=== PATIENT | female | born 1980 | race Caucasian/White ===

== ENCOUNTER 2023-05-28 06:16 | Day surgery (SDC) | payer OTHER, SELFPAY ==
[2023-05-28] VITALS (11 sets, daily range): BP systolic 112–143; BP diastolic 71–106; BMI 28.6
[2023-05-28] MEDS: NORMOSOL-R 1000 IV (08:50)
[2023-05-28] MEDS: DEMEROL 12.5 MG IV (11:26)
[2023-05-28] MEDS: SUBLIMAZE 50 MCG IV (11:34)
[2023-05-28] MEDS: SUBLIMAZE 25 MCG IV ×2 (11:44→11:53)
[2023-05-28] MEDS: Pyridium 200 MG PO (11:47)
== END 2023-05-28 13:00 | disposition home or self-care (01) ==
LOC: SDS 06:16
PROVIDERS: ATTENDING PHYSICIAN Specialist
DX: N20.2 Calculus of kidney with calculus of ureter (principal); Z87.442 Personal history of urinary calculi
CPT/HCPCS: 52356; 74018; 76000; C1894; C2617

== ENCOUNTER 2023-06-08 17:32 | Emergency (ER) | payer OTHER, SELFPAY ==
[2023-06-08 17:35] VITALS: BP 162/88
[2023-06-08] MEDS: ZOFRAN 4 MG IV ×2 (17:54→20:06)
[2023-06-08] MEDS: NSS 1000 IV (17:55)
[2023-06-08] MEDS: DILAUDID 1 MG IV (17:57)
[2023-06-08 17:58] LABS: % Basophils 0.9 % (0-2); % Immature Granulocytes 0.4 % (0-0.5); % Lymphocytes 31.1 % (20.5-51.1); % Monocytes 6.6 % (1.7-9.3); Absolute Basophils 0.1 10^3/uL (0-0.2); Absolute Eosinophils 0.5 10^3/uL (0-0.7); Absolute Immature Granulocytes 0.1 10^3/uL (0-0.05); Absolute Lymphocytes 4.1 10^3/uL (1.2-3.4); Absolute Monocytes 0.9 10^3/uL (0.1-0.6); Absolute Neutrophils 7.5 10^3/uL (1.4-6.5); Hematocrit 42.1 % (37.0-47.0); Hemoglobin 14.4 g/dL (12.0-16.0); Mean Corp Hgb Conc. 34.2 g/dL (33.0-37.0); Mean Corpuscular Hgb 30.5 pg (27.0-31.0); Mean Corpuscular Volume 89.2 fL (81.0-99.0); Mean Platelet Volume 8.6 fL (7.4-10.4); Nucleated Red Blood Cells % 0 %; Platelet Count 406 10^3/uL (130-400); Red Blood Cell Count 4.72 10^6/uL (4.20-5.40); Red Cell Dist. Width 11.9 % (11.5-14.5); White Blood Cell Count 13.1 10^3/uL (4.8-10.8)
[2023-06-08 18:10] LABS: Urine Albumin Trace (Neg - Trace); Urine Bilirubin Negative (Negative); Urine Character Clear (Clear); Urine Color Yellow; Urine Glucose Negative (Negative); Urine Ketone Trace (Negative); Urine Leukocyte Negative (Negative); Urine Nitrite Negative (Negative); Urine Occult Blood 4+ (Negative); Urine Urobilinogen Negative (Neg - 1+)
[2023-06-08 18:10] LABS: ALT (SGPT) 16 U/L (0-35); AST (SGOT) 22 U/L (14-36); Albumin 4.2 g/dl (3.5-5.0); Alkaline Phosphatase 85 U/L (38-126); Blood Urea Nitrogen 13 mg/dl (7-17); Calcium 8.9 mg/dl (8.4-10.2); Carbon Dioxide 24 mmol/L (22-30); Chloride 105 mmol/L (98-107); Glucose 115 mg/dl (70-99); Potassium 3.7 mmol/L (3.5-5.1); Sodium 135 mmol/L (135-145); Total Bilirubin 0.3 mg/dl (0.2-1.3); Total Protein 7.1 g/dl (6.3-8.2); eGFR > 60.00
[2023-06-08 18:13] LABS: HCG, Serum Qualitative Screen Negative
[2023-06-08 18:18] LABS: Urine Red Blood Cell >100 /HPF (0-2); Urine Squamous Cell >30 /LPF (Few); Urine White Cell 0-2 /HPF (0-5)
--- NOTE | 2023-06-08 19:33 | ED.GENMED ---
History of Present Illness
General
Chief Complaint: Flank Pain
Source: patient
Exam Limitations: none
Time Seen by Provider: 06/08/23 17:42
Travel History
Have you had any contact with someone who has COVID-19?: No
Do you have any symptoms of coronavirus? Fever > 100 degrees, chills, cough, shortness of breath, sore throat, loss of taste or smell, muscle aches, or headache?: No
History of Present Illness
History of Present Illness:
42-year-old female presents with severe right flank pain. Patient started with pain this afternoon. She recently was treated for kidney stone by urology. She states this pain is the same as her typical kidney stone pain. The pain is severe. She
admits to nausea and vomiting as well. No fevers
Past History
Past History
ED Past Medical History: Hypothyroidism, Psychiatric (anxiety) and Other (Ovarian cyst, Kidney stones, endometriosis, UTI,)
ED Past Surgical History: Gynecological (Total Hysterectomy, right oophorectomy), Tonsilectomy, Urological (Left lithotripsy 12/09/2013, stent placement) and Other (sinus surgery)
Social History
Tobacco: Smoker
Alcohol: Occasional
Drug: Marijuana
Personal:
Living: with family
Employment: Employed
Family History
Family History: Hypertension (Mother) and CAD (Grandfather)
Phy Exam
Physical Exam
Physical Exam:
CONSTITUTIONAL Vital signs reviewed, Patient alert and oriented to person, place and time. Moderate pain distress
HEAD atraumatic, normocephalic.
EYES eyelids normal to inspection, Extraocular muscles intact, Conjunctiva normal, Sclera normal.
NECK normal range of motion, Trachea midline, no jugular venous distention.
RESP no respiratory distress
BACK No obvious deformities, right CVA tenderness
UPPER EXTREMITY Gross Range of motion normal, gross motor strength normal
LOWER EXTREMITY Gross range of motion normal, Gross motor strength normal
NEURO Speech normal, No focal motor deficits include, [place] coma scale 15, Memory normal, Cranial Nerves intact to screening exam.
SKIN Skin warm, dry, and normal in color.
PSYCHIATRIC Patient oriented to person place and time, Normal affect.
Course
Orders/Labs/Results
Orders:
Orders
06/08/23 17:45
Urinalysis Reflex To Culture Urgent
Date Specimen was Collected: 06/08/23
Time Specimen was Collected: 17:42
Urine Microscopic Reflex Cult Urgent
06/08/23 17:47
CT Abd/pel Without Iv Or Oral Stat
Comment:
Reason For Exam: R flank pain
HCG, Urine Qualitative Screen Urgent
0.9% Sodium Chloride 1000 ml [Nss] 1,000 ml IV BOLUS
Ondansetron Injectable [Zofran] 4 mg IV NOW STA
Test Result ONCE
06/08/23 17:50
Complete Blood Count/With Diff Urgent
Comprehensive Metabolic Panel Urgent
HCG, Serum Qualitative Screen Urgent
06/08/23 17:53
HYDROmorphone [Dilaudid] 1 mg .ROUTE .STK-MED ONE
06/08/23 17:57
HYDROmorphone [Dilaudid] 1 mg IV NOW STA
06/08/23 18:00
Add On- LAB Urgent
Tests Added?: hcg urine qualitative
06/08/23 19:43
Ketorolac [Toradol] 30 mg .ROUTE .STK-MED ONE
Ondansetron Injectable [Zofran] 4 mg .ROUTE .STK-MED ONE
06/08/23 19:44
Ketorolac [Toradol] 30 mg IV NOW STA
06/08/23 20:06
Ondansetron Injectable [Zofran] 4 mg IV NOW STA
Abnormal Lab Results
06/08/23 06/08/23
17:45 17:50
WBC 13.1 H 10^3/uL
(4.8-10.8)
Plt Count 406 H 10^3/uL
(130-400)
Abs Immat Gran (auto) 0.1 H 10^3/uL
(0-0.05)
Absolute Neuts (auto) 7.5 H 10^3/uL
(1.4-6.5)
Absolute Lymphs (auto) 4.1 H 10^3/uL
(1.2-3.4)
Absolute Monos (auto) 0.9 H 10^3/uL
(0.1-0.6)
Glucose 115 H mg/dl
(70-99)
Urine Ketones Trace A
(Negative)
Ur Occult Blood Reflex 4+ A
(Negative)
Urine RBC >100 A /HPF
(0-2)
06/08/23 17:50
06/08/23 17:50
Vital Signs
Initial and Last Documented VS:
Initial Vital Signs
Temp Pulse Resp BP Pulse Ox
97.5 F 57 18 162/88 99
06/08/23 17:35 06/08/23 17:35 06/08/23 17:35 06/08/23 17:35 06/08/23 17:35
Last Documented Vital Signs
Temp Pulse Resp BP Pulse Ox
97.5 F 57 18 162/88 99
06/08/23 17:35 06/08/23 17:35 06/08/23 17:35 06/08/23 17:35 06/08/23 17:35
MDM/Problems Addressed
MDM/Problems Addressed:
Nephrolithiasis, flank pain, renal colic
*Radiology
Radiology exam reviewed: preliminary read by ED provider (Right-sided stone noted with hydro)
*Pulse Oximetry
Patient hypoxic: no
*Critical Care Note
Total Time (30-74mins, 75-104mins- exclusive of procedures): Not Applicable
Data Reviewed
Review of Other/Old Records Reveals: Operative Reports (Operative report reviewed from May 2023, left UVJ stone)
Source: patient
Further Testing Considered But Not Given:
Considered ultrasound will proceed with CT
Patient Management
Discussion with other providers: Housekeeper And Laundry Assistant (case d/w / parker. Recommends outpatient management and will follow closely. He request that the patient call him in the morning)
Escalation/DeEscalation of care consider admission/obs:
Patient feeling much better. Afebrile. Outpatient follow-up with Dr. Yoo. Patient has pain medications at home
ED Attending Note
-
Portions of this chart may have been created with voice recognition software.� Occasional wrong word or��sound alike� substitutions may have occurred due to the inherent limitations of voice recognition software.
Discharge Plan
Departure
Patient Disposition: Home (Routine Discharge)
Date of Disposition: 06/08/23
Time of Disposition: 20:27
Patient with high blood pressure during this ER visit?: Yes
Discharge Problem:
Ureterolithiasis
Instructions: Kidney Stones (DC), BLOOD PRESSURE
Prescriptions:
New
tamsulosin [Flomax] 0.4 mg capsule
0.4 mg PO HS Qty: 30 0RF
No Action
clonazepam 1 MG tablet
1 mg PO HS
levothyroxine 100 MCG tablet
100 mcg PO DAILY
lisinopril 10 mg Tablet
10 mg PO HS
paroxetine HCl [Paxil] 40 mg Tablet
40 mg PO HS
tamsulosin 0.4 mg capsule
0.4 mg PO HS
Medical Marijuana
1 dose inhalation PRN PRN (Reason: Insomnia/ Anxiety)
Referrals:
Bay Smith MD [Family Provider] -
Activity Restrictions/Additional Instructions:
Please call Dr. Yoo tomorrow to plan follow-up. Return for intractable pain, fevers, vomiting or any other concerns
Interventions
Interventions:
*Risk Screen - Suicide Last Done: 06/08/23 17:37
*General Assessment Last Done: 06/08/23 17:37
*Neglect/Abuse Screening Last Done: 06/08/23 17:37
DC-Unzgej-Jwysivkvku Assessment Last Done: 06/08/23 18:01
ED-Female Genitourinary Assessment Last Done: 06/08/23 18:01
[2023-06-08] MEDS: TORADOL 30 MG IV (19:57)
[2023-06-08 20:32] VITALS: BP 125/86
== END 2023-06-08 20:36 | disposition home or self-care (01) ==
LOC: EMR 17:32
PROVIDERS: EMERGENCY PHYSICIAN Emergency Medicine; FAMILY PHYSICIAN Family Medicine
DX: N13.2 Hydronephrosis with renal and ureteral calculous obstruction (principal); F17.200 Nicotine dependence, unspecified, uncomplicated
CPT/HCPCS: 99284; 96374; 96375 ×2; 96361; 96376; 74176; 80053; 81003; 81015; 84703; 85025

== ENCOUNTER 2023-06-11 06:18 | Day surgery (SDC) | payer OTHER, SELFPAY ==
[2023-06-11] VITALS (7 sets, daily range): BP systolic 126–162; BP diastolic 79–98
[2023-06-11] MEDS: NORMOSOL-R 1000 IV (09:16)
[2023-06-11] MEDS: DILAUDID 0.5 MG IV ×2 (11:13→11:28)
[2023-06-11] MEDS: Pyridium 200 MG PO (11:43)
[2023-06-14 09:59] LABS: Stone Analysis Mass 11 mg
== END 2023-06-11 12:32 | disposition home or self-care (01) ==
LOC: SDS 06:18
PROVIDERS: ATTENDING PHYSICIAN Specialist
DX: N13.2 Hydronephrosis with renal and ureteral calculous obstruction (principal); Q61.5 Medullary cystic kidney
CPT/HCPCS: 52356; 74018; 76000; 82365; A4300; C1894; C2617

== ENCOUNTER 2023-06-13 22:09 | Emergency (ER) | payer OTHER, SELFPAY ==
[2023-06-13 22:12] VITALS: BP 172/114
[2023-06-13 22:33] VITALS: BMI 29.8
[2023-06-13] MEDS: NSS 1000 IV (22:34)
[2023-06-13 22:40] LABS: % Basophils 0.6 % (0-2); % Eosinophils 3.5 % (0-6); % Immature Granulocytes 0.4 % (0-0.5); % Lymphocytes 35.7 % (20.5-51.1); % Monocytes 8.5 % (1.7-9.3); % Neutrophils 51.3 % (42.2-75.2); Absolute Basophils 0.1 10^3/uL (0-0.2); Absolute Eosinophils 0.5 10^3/uL (0-0.7); Absolute Immature Granulocytes 0.1 10^3/uL (0-0.05); Absolute Lymphocytes 4.7 10^3/uL (1.2-3.4); Absolute Monocytes 1.1 10^3/uL (0.1-0.6); Absolute Neutrophils 6.7 10^3/uL (1.4-6.5); Hematocrit 39.2 % (37.0-47.0); Hemoglobin 13.9 g/dL (12.0-16.0); Mean Corp Hgb Conc. 35.5 g/dL (33.0-37.0); Mean Corpuscular Hgb 30.7 pg (27.0-31.0); Mean Corpuscular Volume 86.5 fL (81.0-99.0); Mean Platelet Volume 8.8 fL (7.4-10.4); Nucleated Red Blood Cells % 0 %; Platelet Count 330 10^3/uL (130-400); Red Blood Cell Count 4.53 10^6/uL (4.20-5.40); Red Cell Dist. Width 12.1 % (11.5-14.5)
--- NOTE | 2023-06-13 22:40 | ED.GENMED ---
History of Present Illness
General
Chief Complaint: Abdominal Pain
Source: patient
Exam Limitations: none
Time Seen by Provider: 06/13/23 22:37
Travel History
Have you had any contact with someone who has COVID-19?: No
Do you have any symptoms of coronavirus? Fever > 100 degrees, chills, cough, shortness of breath, sore throat, loss of taste or smell, muscle aches, or headache?: No
History of Present Illness
History of Present Illness:
See MDM
Past History
Past History
ED Past Medical History: Hypothyroidism, Psychiatric (anxiety) and Other (Ovarian cyst, Kidney stones, endometriosis, UTI,)
ED Past Surgical History: Gynecological (Total Hysterectomy, right oophorectomy), Tonsilectomy, Urological (Left lithotripsy 12/09/2013, stent placement) and Other (sinus surgery)
Social History
Tobacco: Smoker
Alcohol: Occasional
Drug: Marijuana
Personal:
Living: with family
Employment: Employed
Family History
Family History: Hypertension (Mother) and CAD (Grandfather)
Phy Exam
Physical Exam
Physical Exam:
See MDM
Course
Orders/Labs/Results
Orders:
Orders
06/13/23 22:32
IV Insert/Care/Rem.- Treatment PRN
06/13/23 22:34
0.9% Sodium Chloride 1000 ml [Nss] 1,000 ml IV BOLUS
06/13/23 22:35
Complete Blood Count/With Diff Urgent
Comprehensive Metabolic Panel Urgent
06/13/23 22:39
HYDROmorphone [Dilaudid] 1 mg IV NOW STA
Ondansetron Injectable [Zofran] 4 mg IV NOW STA
06/13/23 22:40
CT Abd/pel Without Iv Or Oral Urgent
Comment:
Reason For Exam: R flank pain, Recent R ureteral stent
06/13/23 22:52
Ketorolac [Toradol] 30 mg .ROUTE .STK-MED ONE
06/13/23 22:55
Ketorolac [Toradol] 30 mg IV NOW STA
Abnormal Lab Results
06/13/23
22:35
WBC 13.0 H 10^3/uL
(4.8-10.8)
Abs Immat Gran (auto) 0.1 H 10^3/uL
(0-0.05)
Absolute Neuts (auto) 6.7 H 10^3/uL
(1.4-6.5)
Absolute Lymphs (auto) 4.7 H 10^3/uL
(1.2-3.4)
Absolute Monos (auto) 1.1 H 10^3/uL
(0.1-0.6)
Sodium 134 L mmol/L
(135-145)
AST 39 H U/L
(14-36)
06/13/23 22:35
06/13/23 22:35
Vital Signs
Initial and Last Documented VS:
Initial Vital Signs
Temp Pulse Resp BP Pulse Ox
97.9 F 84 24 172/114 100
06/13/23 22:12 06/13/23 22:12 06/13/23 22:12 06/13/23 22:12 06/13/23 22:12
Last Documented Vital Signs
Temp Pulse Resp BP Pulse Ox
98.1 F 77 16 124/81 99
06/14/23 00:02 06/14/23 00:02 06/14/23 00:02 06/14/23 00:02 06/14/23 00:02
MDM/Problems Addressed
Differential Diagnosis Includes:
HPI and MDM Narrative:
42-year-old female presenting with sudden onset of right flank pain. This is associated with nausea. Patient had recent ureteral stent placed few days ago with laser lithotripsy of 2 proximal stones patient states the pain came on suddenly and
feels similar to episode when she was diagnosed with kidney stones
Physical exam
General: Uncomfortable, unable to find comfortable position
HEENT: protecting airway
Neck: appears supple
CV: No evidence of cyanosis
Resp: No accessory muscle use
Abd: Non-distended. Mild right flank tenderness. No rebound
Extremities: No deformities
Neuro: alert
Psych: Normal affect
Skin: Intact
Problems Addressed including Acute and Chronic Conditions affecting care:
1. Right flank pain
Acuity: acute
Prognosis: stable
Details: Given recent ureteral stent, will repeat CT looking for any stent movement
Updates
CT consistent with movement of the ureteral stent 4 cm proximal. Based on the urologist note, he expected minimal inflammation from the procedure. Case was discussed with urology on-call who agrees that it is safe to remove the stent. Nurse
qa lead Bethany at bedside. I did grab the tether and I easily remove the ureteral stent without complication. The stent was removed in its entirety. Patient tolerated procedure well
Differential Diagnosis (but not limited to): Kidney stone, ureteral stent complication
Testing considered: Urinalysis
Drug therapy (if applicable): OTC meds, please see d/c instruction regarding Rx drugs
Amount and/or Complexity of Data Reviewed
Clinical info obtained from: Patient
External data reviewed: Recent ureteral stent placed
Labs I independently reviewed (but not limited to): Mild leukocytosis
Radiology: The CT scan was personally and independently reviewed. In addition, official CT report reviewed.
Pulse Ox: not hypoxic
EKG independently reviewed: N/A
Order Expediter: N/A
Critical Care: N/A
Risk of Complication:
Social Determinants of health: Good social support
Discussed with other providers: Urologist
Escalation of Care includes Admit/Obs: After being observed in the Emergency Department, pt stable for discharge.
Occasional wrong word or 'sound a like' substitutions may have occurred due to the inherent limitations of voice recognition software. Read the chart carefully and recognize, using context, where substitutions have occurred.
*Critical Care Note
Total Time (30-74mins, 75-104mins- exclusive of procedures): Not Applicable
ED Attending Note
-
Portions of this chart may have been created with voice recognition software.� Occasional wrong word or��sound alike� substitutions may have occurred due to the inherent limitations of voice recognition software.
Discharge Plan
Departure
Patient Disposition: Home (Routine Discharge)
Date of Disposition: 06/14/23
Time of Disposition: 00:46
Patient with high blood pressure during this ER visit?: No
Discharge Problem:
Malposition of ureteral stent
Prescriptions:
No Action
clonazepam 1 MG tablet
1 mg PO HS
levothyroxine 100 MCG tablet
100 mcg PO DAILY
lisinopril 10 mg Tablet
10 mg PO HS
paroxetine HCl [Paxil] 40 mg Tablet
40 mg PO HS
Medical Marijuana
1 dose inhalation PRN PRN (Reason: Insomnia/ Anxiety)
Rx Instructions:
Flower
hydrocodone-acetaminophen [Vicodin ES] 7.5-300 mg Tablet
1 tab PO Q6H PRN (Reason: pain)
Referrals:
Bay Smith MD [Family Provider] -
Activity Restrictions/Additional Instructions:
Please return for any worsening symptoms.
You may return at any time if you have further concerns.
Please follow up with your doctor at the first available appointment, preferably this week.
Thank you for choosing [facility].
Interventions
Interventions:
*Risk Screen - Suicide Last Done: 06/13/23 22:12
*Neglect/Abuse Screening Last Done: 06/13/23 22:12
WM-Tnnzga-Vcpvzzuubq Assessment Last Done: 06/13/23 22:40
[2023-06-13] MEDS: ZOFRAN 4 MG IV (22:44)
[2023-06-13] MEDS: DILAUDID 1 MG IV (22:44)
[2023-06-13 22:54] LABS: ALT (SGPT) 14 U/L (0-35); AST (SGOT) 39 U/L (14-36); Albumin 3.8 g/dl (3.5-5.0); Alkaline Phosphatase 76 U/L (38-126); Blood Urea Nitrogen 10 mg/dl (7-17); Calcium 8.6 mg/dl (8.4-10.2); Carbon Dioxide 24 mmol/L (22-30); Chloride 104 mmol/L (98-107); Estimated Creatinine Clearance > 125 ml/min; Glucose 93 mg/dl (70-99); Potassium 3.7 mmol/L (3.5-5.1); Sodium 134 mmol/L (135-145); Total Bilirubin 0.4 mg/dl (0.2-1.3); Total Protein 6.5 g/dl (6.3-8.2); eGFR > 60.00
[2023-06-13] MEDS: TORADOL 30 MG IV (22:55)
[2023-06-14 00:02] VITALS: BP 124/81
== END 2023-06-14 00:52 | disposition home or self-care (01) ==
LOC: EMR 22:09
PROVIDERS: EMERGENCY PHYSICIAN Student in an Organized Health Care Education/Training Program; FAMILY PHYSICIAN Family Medicine
DX: T83.122A Displacement of indwelling ureteral stent, initial encounter (principal); X58.XXXA Exposure to other specified factors, initial encounter; R10.9 Unspecified abdominal pain; E03.9 Hypothyroidism, unspecified; F41.9 Anxiety disorder, unspecified; F17.200 Nicotine dependence, unspecified, uncomplicated; Z82.49 Family history of ischemic heart disease and other diseases of the circulatory system; Z87.440 Personal history of urinary (tract) infections; Z87.442 Personal history of urinary calculi; Z90.710 Acquired absence of both cervix and uterus; Z90.721 Acquired absence of ovaries, unilateral
CPT/HCPCS: 99284; 96374; 96375; 96361; 74176; 80053; 85025

== ENCOUNTER → 2023-06-16 11:04 | Outpatient (REF) | payer OTHER, SELFPAY | LOC: CLAB 11:04 | PROVIDERS: ATTENDING PHYSICIAN Specialist | DX: N39.0 Urinary tract infection, site not specified (principal) | CPT/HCPCS: 87086 ==

== ENCOUNTER 2024-03-28 12:39 | Emergency (ER) | payer OTHER, BC, SELFPAY ==
[2024-03-28 12:43] VITALS: BP 126/97
--- NOTE | 2024-03-28 12:44 | ED.GENMED ---
ED Provider Triage
<Ajit Rivera Jr., PA-C - Last Filed: 03/28/24 12:49>
-
Patient seen by provider in Triage?: Seen in Triage
Attestation: A medical screening examination has been initiated by a qualified medical provider. Based on the assessment performed at this time, it has been determined that an emergent medical condition may exist and the patient has been informed
that further medical evaluation and possible additional diagnostic testing may be needed.
HPI: 43-year-old female past medical history of kidney stones presenting to the emergency department today with concerns of intermittent discomfort to the left flank over the past 2 days but worsening today. Associated nausea plan for labs
urinalysis and CT scan for further assessment.
GENERAL: Alert , in no apparent distress
EYE: No visual abnormalities.
NECK: Trachea midline
ENT: No visible abnormalities.
LUNGS: No acute respiratory distress
NEUROLOGICAL: Alert and oriented
SKIN: Skin intact. No visible changes.
MUSCULOSKELETAL: Moving extremities normally
PSYCH: Normal and appropriate interaction.
This is a medical evaluation conducted in person to initiate diagnostic evaluation and provide initial therapeutics. Please see further documentation by the treating clinician.
History of Present Illness
<Ajit Rivera Jr., PA-C - Last Filed: 03/28/24 12:49>
General
Chief Complaint: Flank Pain
Time Seen by Provider: 03/28/24 13:43
<Cata Mobley PA-C - Last Filed: 03/28/24 17:47>
General
Source: patient
Exam Limitations: none
Nursing documentation reviewed up to this point in time: agreed with
History of Present Illness
History of Present Illness:
Patient is a 43-year-old female with history hypertension, kidney stones presents emergency department with left flank pain. Patient reports 3 days of watery diarrhea. She then noticed left flank pain radiating into her left lower abdomen
yesterday which became worse today. She does note some radiation of pain up into her chest especially during bowel movements. She has had nausea although no vomiting. No fevers or chills. No shortness of breath. No tearing back pain. No
dizziness or lightheadedness. No one else at home with GI symptoms.
Past History
<Ajit Rivera Jr., PA-C - Last Filed: 03/28/24 12:49>
Past History
ED Past Medical History: Hypothyroidism, Psychiatric (anxiety) and Other (Ovarian cyst, Kidney stones, endometriosis, UTI,)
ED Past Surgical History: Gynecological (Total Hysterectomy, right oophorectomy), Tonsilectomy, Urological (Left lithotripsy 12/09/2013, stent placement) and Other (sinus surgery)
Social History
Tobacco: Smoker
Alcohol: Occasional
Drug: Marijuana
Personal:
Living: with family
Employment: Employed
Family History
Family History: Hypertension (Mother) and CAD (Grandfather)
Review of Systems
<Cata Mobley PA-C - Last Filed: 03/28/24 17:47>
Review of Systems
Allergies reviewed?: Yes
All Other Systems: ROS reviewed and negative except as documented in HPI and ROS
Phy Exam
<CLIFFORD Maria Last Filed: 03/28/24 17:47>
Physical Exam
Physical Exam:
Vitals: Hypertensive, otherwise vital signs stable. Afebrile
General: Patient is uncomfortable due to pain, nontoxic appearing
Skin: Warm and dry, no rashes or lesions
Head: Normocephalic, atraumatic
Eyes: Sclera nonicteric. EOMs intact. No nystagmus.
Throat: Protecting airway
Neck: Normal ROM, no cervical spine tenderness, no meningismus
Cardiac: Regular rate and rhythm, no murmurs.
Pulm: Normal respiratory effort, no wheezes, rales, rhonchi heard on exam.
Abdomen: Abdomen soft. Moderate abdominal tenderness in left lower and right lower quadrants. No rebound tenderness or guarding. No CVA
Extremities: No evidence of cyanosis or edema. Negative Homans' sign bilaterally. Palpable distal pulses.
Neuro: AAOx3. Grossly intact.
Psychiatric: Normal affect.
Course
<Ajit Rivera Jr., PA-C - Last Filed: 03/28/24 12:49>
Orders/Labs/Results
Orders:
Orders
03/28/24 12:46
0.9% Sodium Chloride 1000 ml [Nss] 1,000 ml IV BOLUS
Ketorolac [Toradol] 15 mg IV NOW STA
03/28/24 12:49
Ondansetron Injectable [Zofran] 4 mg IV NOW STA
03/28/24 12:52
Complete Blood Count/With Diff Urgent
Comprehensive Metabolic Panel Urgent
Lipase Urgent
Comment: ADDON
Urinalysis Reflex To Culture Urgent
Date Specimen was Collected: 03/28/24
Time Specimen was Collected: 12:49
Urine Microscopic Reflex Cult Urgent
03/28/24 14:17
Electrocardiogram (*1) Urgent
Reason for Study: Chest Pain
EKG- Treatment ONCE
03/28/24 14:18
Add On- LAB Urgent
Tests Added?: lipase
CT Abd/pelvis W Iv Cont Urgent
Comment:
Reason For Exam: Left abdominal pain, +N, + diarrhea
03/28/24 14:24
Troponin I Urgent
Abnormal Lab Results
03/28/24
12:52
Absolute Monos (auto) 0.7 H 10^3/uL
(0.1-0.6)
Leukocyte Esterase Rfl Trace A
(Negative)
03/28/24 12:52
03/28/24 12:52
Vital Signs
Initial and Last Documented VS:
Initial Vital Signs
Temp Pulse Resp BP Pulse Ox
97.6 F 93 18 126/97 98
03/28/24 12:43 03/28/24 12:43 03/28/24 12:43 03/28/24 12:43 03/28/24 12:43
Last Documented Vital Signs
Temp Pulse Resp BP Pulse Ox
97.6 F 64 17 151/97 98
03/28/24 12:43 03/28/24 16:44 03/28/24 16:44 03/28/24 16:44 03/28/24 12:43
<Cata Mobley PA-C - Last Filed: 03/28/24 17:47>
Orders/Labs/Results
Orders:
Orders
03/28/24 12:46
0.9% Sodium Chloride 1000 ml [Nss] 1,000 ml IV BOLUS
Ketorolac [Toradol] 15 mg IV NOW STA
03/28/24 12:49
Ondansetron Injectable [Zofran] 4 mg IV NOW STA
03/28/24 12:52
Complete Blood Count/With Diff Urgent
Comprehensive Metabolic Panel Urgent
Lipase Urgent
Comment: ADDON
Urinalysis Reflex To Culture Urgent
Date Specimen was Collected: 03/28/24
Time Specimen was Collected: 12:49
Urine Microscopic Reflex Cult Urgent
03/28/24 14:17
Electrocardiogram (*1) Urgent
Reason for Study: Chest Pain
EKG- Treatment ONCE
03/28/24 14:18
Add On- LAB Urgent
Tests Added?: lipase
CT Abd/pelvis W Iv Cont Urgent
Comment:
Reason For Exam: Left abdominal pain, +N, + diarrhea
03/28/24 14:24
Troponin I Urgent
Abnormal Lab Results
03/28/24
12:52
Absolute Monos (auto) 0.7 H 10^3/uL
(0.1-0.6)
Leukocyte Esterase Rfl Trace A
(Negative)
03/28/24 12:52
03/28/24 12:52
Vital Signs
Initial and Last Documented VS:
Initial Vital Signs
Temp Pulse Resp BP Pulse Ox
97.6 F 93 18 126/97 98
03/28/24 12:43 03/28/24 12:43 03/28/24 12:43 03/28/24 12:43 03/28/24 12:43
Last Documented Vital Signs
Temp Pulse Resp BP Pulse Ox
97.6 F 64 17 151/97 98
03/28/24 12:43 03/28/24 16:44 03/28/24 16:44 03/28/24 16:44 03/28/24 12:43
<Bay Justin MD - Last Filed: 03/28/24 14:26>
Orders/Labs/Results
Orders:
Orders
03/28/24 12:46
0.9% Sodium Chloride 1000 ml [Nss] 1,000 ml IV BOLUS
Ketorolac [Toradol] 15 mg IV NOW STA
03/28/24 12:49
Ondansetron Injectable [Zofran] 4 mg IV NOW STA
03/28/24 12:52
Complete Blood Count/With Diff Urgent
Comprehensive Metabolic Panel Urgent
Lipase Urgent
Comment: ADDON
Urinalysis Reflex To Culture Urgent
Date Specimen was Collected: 03/28/24
Time Specimen was Collected: 12:49
Urine Microscopic Reflex Cult Urgent
03/28/24 14:17
Electrocardiogram (*1) Urgent
Reason for Study: Chest Pain
EKG- Treatment ONCE
03/28/24 14:18
Add On- LAB Urgent
Tests Added?: lipase
CT Abd/pelvis W Iv Cont Urgent
Comment:
Reason For Exam: Left abdominal pain, +N, + diarrhea
03/28/24 14:24
Troponin I Urgent
Abnormal Lab Results
03/28/24
12:52
Absolute Monos (auto) 0.7 H 10^3/uL
(0.1-0.6)
Leukocyte Esterase Rfl Trace A
(Negative)
03/28/24 12:52
03/28/24 12:52
Vital Signs
Initial and Last Documented VS:
Initial Vital Signs
Temp Pulse Resp BP Pulse Ox
97.6 F 93 18 126/97 98
03/28/24 12:43 03/28/24 12:43 03/28/24 12:43 03/28/24 12:43 03/28/24 12:43
Last Documented Vital Signs
Temp Pulse Resp BP Pulse Ox
97.6 F 64 17 151/97 98
03/28/24 12:43 03/28/24 16:44 03/28/24 16:44 03/28/24 16:44 03/28/24 12:43
<Cata Mobley PA-C - Last Filed: 03/28/24 17:47>
MDM/Problems Addressed
Differential Diagnosis Includes:
Not limited to: Cystitis, pyelonephritis, nephrolithiasis, diverticulitis, viral gastroenteritis, GERD, etc.
MDM/Problems Addressed:
43-year-old female presenting with lower abdominal discomfort and diarrhea over the past few days. No vomiting although does have some nausea. No urinary symptoms. No one at home with similar symptoms. Patient afebrile with stable vital signs on
arrival. On exam�patient is mildly uncomfortable due to pain although nontoxic appearing. Heart regular rate and rhythm. Lungs clear bilaterally. No lower extremity edema. Abdomen is soft with moderate somewhat diffuse tenderness throughout
lower abdomen. No rebound tenderness or guarding. No CVA tenderness or rash. Labs were initiated in triage without any clinically significant abnormalities. There is no leukocytosis. Urine shows no evidence of infection or red blood cells.
Differential somewhat broad although considerations include viral gastroenteritis, kidney stone, diverticulitis, appendicitis, etc. Very low suspicion for ACS although given some radiation of pain to chest�will screen with troponin and EKG. Do not
suspect PE. Patient be given Toradol, fluids, Zofran. Will reassess.
Update 3:20 PM: Troponin is undetectable. EKG shows normal sinus rhythm without acute ischemic changes. Lipase normal. Abdomen/pelvis CT without any acute findings. Patient with improvement in pain after Toradol. No episodes of vomiting. At
this point suspect likely viral gastroenteritis. No indication for admission. She did receive a liter of fluids in emergency department. Will discharge home with close return precautions, primary care follow-up. PC with attending physician.
Chronic conditions affecting care:
Nephrolithiasis, diverticulosis, hypertension
Acute Exacerbation and/or Progression of Chronic Illness:
Acutely hypertensive
<Cata Mobley PA-C - Last Filed: 03/28/24 17:47>
*Radiology
Radiology exam reviewed: preliminary read by ED provider and radiology read reviewed
*Pulse Oximetry
Patient hypoxic: no
*EKG
Interpreted by ED Provider?: Yes
EKG Intrepretation Date: 03/28/24
Interpretation: normal
Comparison EKG: changes noted
Heart Rate: 63
Rate: normal
Rhythm: sinus
[place]: normal axis
Interval: normal interval
QRS Pattern: normal QRS
Ischemia: no ischemia
*Cold Strip Roller Interpretation
Rate: Cold Strip Roller- N/A
*Critical Care Note
Total Time (30-74mins, 75-104mins- exclusive of procedures): Not Applicable
ED Attending Note
<Ajit Rivera Jr., PA-C - Last Filed: 03/28/24 12:49>
-
Portions of this chart may have been created with voice recognition software.� Occasional wrong word or��sound alike� substitutions may have occurred due to the inherent limitations of voice recognition software.
<Bay Justin MD - Last Filed: 03/28/24 14:26>
ED Attending Note
Patient seen and examined by attending physician: Yes
I performed the substantive portion of visit, reviewed & personally made and approve the management plan that is documented in note by myself or RARON.: Yes
ED Attending Note:
43-year-old female complaining of significant diarrhea crampy abdominal pain some back pain. Today developed some radiation of the pain up into her chest. No shortness of breath. No fever. Recent COVID infection that all essentially got better.
On exam patient is nontoxic but does appear uncomfortable. She is rubbing her chest at times. She is in no respiratory distress. Lungs are clear and equal. Heart regular rate and rhythm no murmur. Abdomen with positive bowel sounds
nondistended. Soft. Nonlocalizing tenderness but slightly greater on the left upper quadrant and left lower quadrant. No rebound or guarding no mass or hernia. Nonfocal.
Impression is clearly GI symptoms. This may all be the norovirus. Would be a reasonable explanation for her symptoms. Doubt kidney issue with a negative urine and significant GI issues however CT scan being done primarily for diverticulitis
evaluation but will also evaluate the kidneys. Highly doubt cardiac issue with chest pain. I feel this is all referred up from her abdomen but we will get an EKG and troponin. Pain management nausea meds fluids. Workup in progress
Discharge Plan
Departure
Patient Disposition: Home (Routine Discharge)
Date of Disposition: 03/28/24
Time of Disposition: 16:18
Patient with high blood pressure during this ER visit?: Yes
Condition: Good
Covid-19: Not Applicable
Discharge Problem:
Abdominal pain, Diarrhea
Instructions: Dehydration in adults - ED discharge instructions, Acute Diarrhea, Abdominal Pain, BLOOD PRESSURE
Prescriptions:
No Action
clonazepam 1 MG tablet
1 mg PO HS
levothyroxine 100 MCG tablet
100 mcg PO DAILY
lisinopril 10 mg Tablet
10 mg PO HS
paroxetine HCl [Paxil] 40 mg Tablet
40 mg PO HS
Medical Marijuana
1 dose inhalation PRN PRN (Reason: Insomnia/ Anxiety)
Rx Instructions:
Flower
hydrocodone-acetaminophen [Vicodin ES] 7.5-300 mg Tablet
1 tab PO Q6H PRN (Reason: pain)
Referrals:
UNKNOWN - PT DOES,NOT KNOW [Family Provider] -
Activity Restrictions/Additional Instructions:
Return to the emergency department any high fevers, intractable nausea/vomiting, persistent diarrhea, signs of severe dehydration including lack of urine production, severe abdominal pain, worsening of current symptoms, or any other concerns
-As discussed�your CT scan showed no evidence of an obstructing kidney stone while in the emergency department. This is possible this is a viral illness
-It is important to stay well-hydrated. I would recommend a bland diet over the next 2 days and slowly advance as tolerated. You can take Motrin/Tylenol as needed for discomfort.
-Follow-up with primary care for further evaluation/management as needed
Monitor your symptoms closely and return to the emergency department with any acute worsening/new symptoms or any other concerns.
Interventions
Interventions:
*Risk Screen - Suicide Last Done: 03/28/24 16:42
*General Assessment Last Done: 03/28/24 16:42
*Neglect/Abuse Screening Last Done: 03/28/24 16:42
*Nursing Disposition Last Done: 03/28/24 16:45
LQ-Quchwt-Nqcoujlzfj Assessment Last Done: 03/28/24 16:40
ED-Female Genitourinary Assessment Last Done: 03/28/24 16:41
Discharge Date and Time
Discharge Date/Time: 03/28/24 16:45
Print Language: MAORI
[2024-03-28 13:02] LABS: % Basophils 0.7 % (0-2); % Eosinophils 4.9 % (0-6); % Immature Granulocytes 0.5 % (0-0.5); % Lymphocytes 34.2 % (20.5-51.1); % Monocytes 7.9 % (1.7-9.3); % Neutrophils 51.8 % (42.2-75.2); Absolute Basophils 0.1 10^3/uL (0-0.2); Absolute Eosinophils 0.4 10^3/uL (0-0.7); Absolute Monocytes 0.7 10^3/uL (0.1-0.6); Absolute Neutrophils 4.5 10^3/uL (1.4-6.5); Hematocrit 42.6 % (37.0-47.0); Hemoglobin 14.8 g/dL (12.0-16.0); Mean Corp Hgb Conc. 34.7 g/dL (33.0-37.0); Mean Corpuscular Hgb 30.3 pg (27.0-31.0); Mean Corpuscular Volume 87.1 fL (81.0-99.0); Mean Platelet Volume 8.7 fL (7.4-10.4); Nucleated Red Blood Cells % 0 %; Platelet Count 354 10^3/uL (130-400); Red Blood Cell Count 4.89 10^6/uL (4.20-5.40); White Blood Cell Count 8.7 10^3/uL (4.8-10.8)
[2024-03-28 13:21] LABS: ALT (SGPT) 27 U/L (0-35); AST (SGOT) 25 U/L (14-36); Albumin 4.1 g/dl (3.5-5.0); Alkaline Phosphatase 66 U/L (38-126); Blood Urea Nitrogen 7 mg/dl (7-17); Calcium 8.6 mg/dl (8.4-10.2); Carbon Dioxide 24 mmol/L (22-30); Chloride 103 mmol/L (98-107); Glucose 97 mg/dl (70-99); Potassium 3.9 mmol/L (3.5-5.1); Sodium 137 mmol/L (135-145); Total Bilirubin 0.5 mg/dl (0.2-1.3); Total Protein 6.7 g/dl (6.3-8.2); eGFR > 60.00
[2024-03-28 13:22] LABS: Urine Albumin Trace (Neg - Trace); Urine Bilirubin Negative (Negative); Urine Character Slightly Cloudy (Clear); Urine Color Yellow; Urine Glucose Negative (Negative); Urine Ketone Negative (Negative); Urine Leukocyte Trace (Negative); Urine Nitrite Negative (Negative); Urine Occult Blood Negative (Negative); Urine Specific Gravity 1.025 (<1.030); Urine Urobilinogen Negative (Neg - 1+)
[2024-03-28] MEDS: ZOFRAN 4 MG IV (14:20)
[2024-03-28] MEDS: TORADOL 15 MG IV (14:21)
[2024-03-28] MEDS: NSS 1000 IV (14:47)
[2024-03-28 14:55] LABS: Urine Amorphous Seen; Urine Squamous Cell >30 /LPF (Few); Urine Urothelial Cell 0-2 /LPF (FEW)
[2024-03-28 14:56] LABS: Urine Red Blood Cell 0-2 /HPF (0-2)
[2024-03-28 15:06] LABS: Troponin I < 0.012 ng/ml
[2024-03-28 15:25] LABS: Lipase 203 U/L (23-300)
[2024-03-28 16:44] VITALS: BP 151/97
== END 2024-03-28 16:45 | disposition home or self-care (01) ==
LOC: EMR 12:39
PROVIDERS: Physician Assistant; EMERGENCY PHYSICIAN Emergency Medicine
DX: R10.9 Unspecified abdominal pain (principal); R19.7 Diarrhea, unspecified; E03.9 Hypothyroidism, unspecified; F41.9 Anxiety disorder, unspecified; F17.200 Nicotine dependence, unspecified, uncomplicated; I10 Essential (primary) hypertension; Z82.49 Family history of ischemic heart disease and other diseases of the circulatory system; Z87.440 Personal history of urinary (tract) infections; Z87.442 Personal history of urinary calculi; Z90.710 Acquired absence of both cervix and uterus; Z90.721 Acquired absence of ovaries, unilateral
CPT/HCPCS: 99284; 96374; 96375; 96361; 74177; 80053; 81003; 81015; 83690; 84484; 85025; 93005; Q9967

== ENCOUNTER 2024-04-05 08:21 | Emergency (ER) | payer OTHER, SELFPAY ==
[2024-04-05 08:22] VITALS: BP 141/96
--- NOTE | 2024-04-05 09:01 | ED.GENMED ---
History of Present Illness
General
Chief Complaint: Abdominal Symptoms
Source: patient
Exam Limitations: none
Time Seen by Provider: 04/05/24 08:37
Nursing documentation reviewed up to this point in time: agreed with
History of Present Illness
History of Present Illness:
43-year-old female past medical history of hypertension presenting to the emergency department today with concerns of ongoing diarrhea and left-sided abdominal pain. Had similar symptoms 1 week [address] scan and labs without any emergent
findings. She was told she likely had a viral syndrome. She claims that she has had ongoing achiness to the left side of the abdomen and ongoing diarrhea at least 10 episodes daily of loose brown and green stool. Denies specific fevers. Denies
any lightheadedness chest pain shortness of breath.
Past History
Past History
ED Past Medical History: Hypothyroidism, Psychiatric (anxiety) and Other (Ovarian cyst, Kidney stones, endometriosis, UTI,)
ED Past Surgical History: Gynecological (Total Hysterectomy, right oophorectomy), Tonsilectomy, Urological (Left lithotripsy 12/09/2013, stent placement) and Other (sinus surgery)
Social History
Tobacco: Smoker
Alcohol: Occasional
Drug: Marijuana
Personal:
Living: with family
Employment: Employed
Family History
Family History: Hypertension (Mother) and CAD (Grandfather)
Review of Systems
Review of Systems
Allergies reviewed?: Yes
All Other Systems: ROS reviewed and negative except as documented in HPI and ROS
Phy Exam
Physical Exam
Physical Exam:
GENERAL: Alert , in no apparent distress
EYE: pupils equal and reactive
NECK: Supple, no significant adenopathy.
ENT: o/p clr, mmm.
CARDIAC: Regular rate and rhythm .
LUNGS: Clear breath sounds bilaterally, no acute respiratory distress, no wheezes/rales/rhonchi
ABDOMEN: Soft, without focal tenderness, no r/g, no cvat
NEUROLOGICAL: Alert and oriented, no focal neuro deficits
SKIN: Warm and dry, skin intact.
MUSCULOSKELETAL: No edema, well perfused.
PSYCH: Normal and appropriate interaction.
Course
Orders/Labs/Results
Orders:
Orders
04/05/24 08:58
Urinalysis Reflex To Culture Urgent
Date Specimen was Collected: 04/05/24
Time Specimen was Collected: 09:34
0.9% Sodium Chloride 1000 ml [Nss] 1,000 ml IV BOLUS
Ondansetron Injectable [Zofran] 4 mg IV NOW STA
Test Result ONCE
04/05/24 09:45
Complete Blood Count/With Diff Urgent
Comprehensive Metabolic Panel Urgent
HCG, Serum Qualitative Screen Urgent
STOOL [C difficile Antigen & Toxins] Urgent
HAN Source: Feces/Stool
Specimen Description:
Date Specimen was Collected: 04/05/24
Time Specimen was Collected: 09:34
Stool Culture Urgent
HAN Source: Feces/Stool
Specimen Description:
Date Specimen was Collected: 04/05/24
Time Specimen was Collected: 09:34
04/05/24 09:53
Acetaminophen [Tylenol] 1,000 mg .ROUTE .STK-MED ONE
04/05/24 09:54
Acetaminophen [Tylenol] 1,000 mg PO NOW STA
04/05/24 11:27
Azithromycin [Zithromax] 500 mg PO NOW STA
04/05/24 09:45
04/05/24 09:45
Vital Signs
Initial and Last Documented VS:
Initial Vital Signs
Temp Pulse Resp BP Pulse Ox
97.4 F 92 18 141/96 99
04/05/24 08:22 04/05/24 08:22 04/05/24 08:22 04/05/24 08:22 04/05/24 08:22
Last Documented Vital Signs
Temp Pulse Resp BP Pulse Ox
97.4 F 92 18 141/96 99
04/05/24 08:22 04/05/24 08:22 04/05/24 08:22 04/05/24 08:22 04/05/24 08:22
MDM/Problems Addressed
MDM/Problems Addressed:
Generally well-appearing 43-year-old female presenting to the emergency department with concerns of ongoing diarrhea. Some discomfort to the left side of the abdomen. Had a CT scan and labs 1 week ago without specific findings. Ongoing diarrhea
since. She did take antibiotics a few weeks prior to the onset of this. Plan to test for C. difficile send stool culture as well as check patient's basic labs. She will be given IV fluids and Zofran to help with symptoms. Patient generally
well-appearing after treatment here stable for outpatient follow-up. Does have GI appointment in 2 days. Return precautions given.
*Critical Care Note
Total Time (30-74mins, 75-104mins- exclusive of procedures): Not Applicable
ED Attending Note
-
Portions of this chart may have been created with voice recognition software.� Occasional wrong word or��sound alike� substitutions may have occurred due to the inherent limitations of voice recognition software.
Discharge Plan
Departure
Patient Disposition: Home (Routine Discharge)
Date of Disposition: 04/05/24
Time of Disposition: 11:28
Patient with high blood pressure during this ER visit?: No
Condition: Good
Covid-19: Not Applicable
Discharge Problem:
Diarrhea
Instructions: Diarrhea in teens and adults
Prescriptions:
New
azithromycin 500 mg tablet
500 mg PO DAILY 2 Days Qty: 2 0RF
No Action
clonazepam 1 MG tablet
1 mg PO HS
levothyroxine 100 MCG tablet
100 mcg PO DAILY
lisinopril 10 mg Tablet
10 mg PO HS
paroxetine HCl [Paxil] 40 mg Tablet
40 mg PO HS
Medical Marijuana
1 dose inhalation PRN PRN (Reason: Insomnia/ Anxiety)
Rx Instructions:
Flower
hydrocodone-acetaminophen [Vicodin ES] 7.5-300 mg Tablet
1 tab PO Q6H PRN (Reason: pain)
Referrals:
Bay Smith MD [Family Provider] -
Activity Restrictions/Additional Instructions:
You came to the emergency department today with concerns of ongoing diarrhea. Please take azithromycin 500 mg once daily for the next 2 days. Please follow closely with the GI doctor. Return to the emergency department for any worsening, new or
concerning symptoms.
Interventions
Interventions:
*Risk Screen - Suicide Last Done: 04/05/24 08:22
*General Assessment Last Done: 04/05/24 08:22
*Neglect/Abuse Screening Last Done: 04/05/24 08:22
*ED COVID-19 Vaccine History Last Done: 04/05/24 10:03
VU-Kcyweb-Ikqkbsmief Assessment Last Done: 04/05/24 10:03
Discharge Date and Time
Print Language: TRINIDADIAN
[2024-04-05] MEDS: NSS 1000 IV (09:47)
[2024-04-05] MEDS: TYLENOL 1000 MG PO (09:54)
[2024-04-05 09:57] LABS: % Basophils 0.6 % (0-2); % Eosinophils 4.2 % (0-6); % Immature Granulocytes 0.3 % (0-0.5); % Lymphocytes 30.5 % (20.5-51.1); % Monocytes 8.3 % (1.7-9.3); % Neutrophils 56.1 % (42.2-75.2); Absolute Eosinophils 0.3 10^3/uL (0-0.7); Absolute Monocytes 0.5 10^3/uL (0.1-0.6); Absolute Neutrophils 3.7 10^3/uL (1.4-6.5); Hemoglobin 14.4 g/dL (12.0-16.0); Mean Corp Hgb Conc. 35.1 g/dL (33.0-37.0); Mean Corpuscular Hgb 30.8 pg (27.0-31.0); Mean Corpuscular Volume 87.6 fL (81.0-99.0); Mean Platelet Volume 8.7 fL (7.4-10.4); Nucleated Red Blood Cells % 0 %; Platelet Count 301 10^3/uL (130-400); Red Blood Cell Count 4.68 10^6/uL (4.20-5.40); Red Cell Dist. Width 12.2 % (11.5-14.5); White Blood Cell Count 6.5 10^3/uL (4.8-10.8)
[2024-04-05 10:14] LABS: HCG, Serum Qualitative Screen Negative
[2024-04-05 10:19] LABS: ALT (SGPT) 18 U/L (0-35); AST (SGOT) 23 U/L (14-36); Albumin 3.8 g/dl (3.5-5.0); Alkaline Phosphatase 75 U/L (38-126); Blood Urea Nitrogen 12 mg/dl (7-17); Calcium 8.5 mg/dl (8.4-10.2); Carbon Dioxide 23 mmol/L (22-30); Chloride 106 mmol/L (98-107); Glucose 83 mg/dl (70-99); Potassium 3.9 mmol/L (3.5-5.1); Sodium 138 mmol/L (135-145); Total Bilirubin 0.5 mg/dl (0.2-1.3); Total Protein 6.4 g/dl (6.3-8.2); eGFR > 60.00
[2024-04-05] MEDS: ZITHROMAX 500 MG PO (11:45)
== END 2024-04-05 12:04 | disposition home or self-care (01) ==
LOC: EMR 08:21
PROVIDERS: Physician Assistant; EMERGENCY PHYSICIAN Emergency Medicine; FAMILY PHYSICIAN Family Medicine
DX: R19.7 Diarrhea, unspecified (principal); R10.9 Unspecified abdominal pain; F41.9 Anxiety disorder, unspecified; E03.9 Hypothyroidism, unspecified; I10 Essential (primary) hypertension; K57.90 Diverticulosis of intestine, part unspecified, without perforation or abscess without bleeding; K58.9 Irritable bowel syndrome, unspecified; F32.A Depression, unspecified; F17.210 Nicotine dependence, cigarettes, uncomplicated; Z87.442 Personal history of urinary calculi; Z88.1 Allergy status to other antibiotic agents; Z88.2 Allergy status to sulfonamides
CPT/HCPCS: 99284; 96360; 80053; 84703; 85025; 87045; 87046; 87324; 87427; 87449